=== PATIENT | male | born 1985 | race American Indian/Alaskan Native ===

== ENCOUNTER 2017-08-04 10:33 | Emergency (ER) | payer OTHER ==
[2017-08-04 11:27] VITALS: BP 161/102
[2017-08-04 12:12] LABS: Basophils % (Auto) 0.1 % (0.0-1.8); Hematocrit 42.2 % (35.5-45.6); Hemoglobin 13.5 gm/dl (11.8-15.2); Lymphocytes # (Auto) 1.5 K/mm3 (1.2-5.4); Lymphocytes % (Auto) 9.7 % (13.4-35.0); Mean Corpuscular HGB Conc 32 % (32-34); Mean Corpuscular Hemoglobin 28 pg (28-32); Mean Corpuscular Volume 88 fl (84-94); Monocytes % (Auto) 6.5 % (0.0-7.3); Platelet Count 196 K/mm3 (140-440); Red Blood Count 4.82 M/mm3 (3.65-5.03); Red Cell Distribution Width 13.4 % (13.2-15.2)
[2017-08-04 12:31] LABS: Alanine Aminotransferase 18 units/L (7-56); Albumin 4.7 g/dL (3.9-5); BUN/Creatinine Ratio 12; Blood Urea Nitrogen 15 mg/dL (9-20); Calcium 9.1 mg/dL (8.4-10.2); Hemolysis Index 5
== END 2017-08-04 20:20 | disposition left against medical advice (07) ==
LOC: ED 10:33
DX: R10.31 Right lower quadrant pain (principal); Z53.21 Procedure and treatment not carried out due to patient leaving prior to being seen by health care provider
CPT/HCPCS: 36415; 80053; 85025

== ENCOUNTER 2017-08-09 11:15 | Emergency (ER) | payer OTHER ==
[2017-08-09 12:12] LABS: Bilirubin,Urine NEG (Negative); Blood,Urine MOD (Negative); Color,Urine Yellow (Yellow); Mucus,Urine FEW /HPF; Nitrite,Urine NEG (Negative); Urobilinogen,Urine < 2.0 mg/dL (<2.0)
[2017-08-09 12:17] LABS: Basophils % (Auto) 0.6 % (0.0-1.8); Eosinophils # (Auto) 0.1 K/mm3 (0.0-0.4); Eosinophils % (Auto) 0.6 % (0.0-4.3); Hematocrit 40.6 % (35.5-45.6); Hemoglobin 13.6 gm/dl (11.8-15.2); Lymphocytes # (Auto) 1.9 K/mm3 (1.2-5.4); Lymphocytes % (Auto) 23.4 % (13.4-35.0); Mean Corpuscular HGB Conc 33 % (32-34); Mean Corpuscular Hemoglobin 29 pg (28-32); Mean Corpuscular Volume 87 fl (84-94); Monocytes # (Auto) 0.7 K/mm3 (0.0-0.8); Monocytes % (Auto) 8.4 % (0.0-7.3); Platelet Count 142 K/mm3 (140-440); Red Blood Count 4.67 M/mm3 (3.65-5.03); Red Cell Distribution Width 12.6 % (13.2-15.2)
[2017-08-09] MEDS ORDERED: TORADOL IV ONE (12:42)
[2017-08-09] MEDS ORDERED: TORADOL IM ONE (12:42)
[2017-08-09] MEDS ORDERED: ZOFRAN ODT PO ONE (12:42)
[2017-08-09] MEDS ORDERED: NORCO 5/325 PO ONE (12:42)
[2017-08-09 12:48] LABS: Alanine Aminotransferase 13 units/L (7-56); Albumin 4.4 g/dL (3.9-5); BUN/Creatinine Ratio 11; Blood Urea Nitrogen 16 mg/dL (9-20); Calcium 9.1 mg/dL (8.4-10.2); Hemolysis Index 5
--- NOTE | 2017-08-09 13:40 | Cat Scan Report ---
CT scan of abdomen and pelvis without IV contrast: History: Right flank pain and abdominal pain. Findings: Normal lung bases. No pleural pericardial effusion. Normal liver spleen pancreas and gallbladder. Normal adrenals. 1 mm nonobstructing calculus left kidney. No calculi right kidney. There is 3 mm calculus noted at the right UV junction with dilatation of ureter proximal to the calculus. Normal bladder. No free intraperitoneal fluid or air. No evidence of adenopathy. Gaseous colon with minimal stool in colon. No evidence of appendicitis or diverticulitis. Scattered diverticula sigmoid. Impression: 3 mm calculus right UV junction with mild hydronephrosis. Diverticulosis sigmoid colon. Nonobstructing 1 mm calculus left kidney.
[2017-08-09] MEDS ORDERED: CATAPRES PO ONE (15:43)
--- NOTE | 2017-08-09 15:46 | Emergency Department Report ---
HPI - General Chief Complaint: Abdominal Pain Time Seen by Provider: 08/09/17 12:25 - HPI HPI: The patient is a 32 year old male presents for evaluation of abdominal pain. The patient reports while a quadrant abdominal pain for the past 7-8 days, sharp in quality, radiating to the right flank, exacerbated with movement. He also reports nausea. The patient denies fever, chills, night sweats, diarrhea, blood in the stool, dark tarry stool, dysuria, hematuria, genital discharge, inability to pass flatus. ED Past Medical Hx - Past Medical History Previous Medical History?: Yes Hx Hypertension: Yes (no meds) - Surgical History Past Surgical History?: No - Social History Smoking Status: Former Smoker Substance Use Type: Prescribed - Medications Home Medications: Home Medications Medication Instructions Recorded Confirmed Last Taken Type HYDROcodone/APAP 7.5-325 [Kelley 1 each PO Q8HR PRN #15 tablet 08/09/17 Unknown Rx 7.5-325 mg TAB] Ibuprofen [Motrin] 800 mg PO Q8HR PRN #15 tablet 08/09/17 Unknown Rx Tamsulosin [Flomax] 0.4 mg PO QDAY #7 cap 08/09/17 Unknown Rx ED Review of Systems ROS: Stated complaint: LOWER RIGHT SIDE ABDOMINAL PAIN Other details as noted in HPI Constitutional: denies: fever ENT: denies: throat or neck pain Respiratory: denies: cough, shortness of breath Cardiovascular: denies: chest pain Endocrine: denies unexplained weight loss or gain Gastrointestinal: reports abdominal pain, nausea Genitourinary: denies: dysuria Musculoskeletal: denies: leg swelling Skin: denies: rash Neurological: denies: headache Hematological/Lymphatic: denies: easy bleeding or easy bruising Psych: denies sadness or hopelessness Physical Exam - Physical Exam Vital Signs: Vital Signs 08/09/17 08/09/17 11:27 11:58 Temperature 98.3 F 98.5 F Pulse Rate 77 72 Respiratory 16 18 Rate Blood Pressure 173/114 Blood Pressure 175/117 [Left] O2 Sat by Pulse 99 100 Oximetry Physical Exam: General: well-nourished, well-developed, no acute distress Head: Normocephalic, atraumatic Eyes: normal sclera ENT: Mucous membranes are pink and moist Neck: trachea midline, neck supple, No neck stiffness, no cervical adenopathy Respiratory: Breath sounds equal bilaterally, no wheezing, rales, or rhonchi Cardio: S1 and S2 present, no murmurs, rubs, gallops, capillary refill is brisk Abdomen: Normoactive bowel sounds, soft abdomen, RLQ tenderness, no rigidity, no guarding or rebound tenderness Chest WALL/Back: right CVA tenderness with percussion Musc: No pitting edema Skin: No rash Neuro: no facial drooping, normal speech Psych: Normal affect ED Course Vital Signs 08/09/17 08/09/17 11:27 11:58 Temperature 98.3 F 98.5 F Pulse Rate 77 72 Respiratory 16 18 Rate Blood Pressure 173/114 Blood Pressure 175/117 [Left] O2 Sat by Pulse 99 100 Oximetry ED Medical Decision Making - Lab Data Result diagrams: 08/09/17 12:01 08/09/17 11:58 - Medical Decision Making The patient was seen and examined by myself. The patient is placed on a salt lifter and continuous pulse ox. On initial evaluation, the patient was found to be in no distress. Evaluation orders are placed. The patient is given IM Toradol and a tablet of Kelley for pain. Lab results were non- concerning including WBC, hemoglobin, hematocrit, electrolytes, renal function, LFTs, lipase, and urinalysis. CT scan abdomen and pelvis reveals a 3 mm ureter stone at the UVJ. The patient was reevaluated and reported that their symptoms were markedly improved. The patient is stable for discharge with outpatient follow-up. The patient is given follow-up and return instructions. The patient expressed understanding and agreed with the plan. The patient is discharged in stable condition. Critical care attestation.: If time is entered above; I have spent that time in minutes in the direct care of this critically ill patient, excluding procedure time. ED Disposition Clinical Impression: Ureterolithiasis, Abdominal pain, acute, right lower quadrant, Acute right flank pain Disposition: -01 TO HOME OR SELFCARE Is pt being admited?: No Does the pt Need Aspirin: No Condition: Stable Instructions: How to Strain Your Urine (ED), Kidney Stones (ED), Flank Pain (ED ), Acute Abdominal Pain (ED) Referrals: PRIMARY CARE, [Primary Care Provider] - 3-5 Days PROMISE CANSECO MD [Staff Physician] - 3-5 Days Time of Disposition: 15:42
[2017-08-09 16:49] VITALS: BP 151/92
== END 2017-08-09 16:55 | disposition home or self-care (01) ==
LOC: ED 11:15
DX: R10.31 Right lower quadrant pain (principal); I10 Essential (primary) hypertension; Z87.891 Personal history of nicotine dependence
CPT/HCPCS: 36415; 74176; 80053; 81001; 83690; 85025; 96372; 99284; J1885; Q0162